=== PATIENT | female | born 1955 | race Caucasian/White ===

== ENCOUNTER 2016-10-26 01:00 | Emergency (ER) | payer MEDICARE, MEDICAID ==
[~2016-10-26] VITALS: Ht 162.6 cm; Wt 68.0 kg
[~2016-10-26 01:00] MED LIST: ALPR0.255 PO; HYDR-305 PO; IBUP-2070 PO; KDUR20 PO; MONT10TA21 PO; PANT40TA25 PO; SUMA25TA9 PO; ZOLP10 PO
[2016-10-26] MEDS ORDERED: MORPHINE SULFATE 4 MG/ML SYRINGE IVP ONE ×2 (01:30→04:00)
[2016-10-26] MEDS ORDERED: ONDANSETRON HCL 4 MG/2 ML VIAL IVP ONE (01:30)
[2016-10-26] MEDS ORDERED: SODIUM CHLORIDE 0.9% 1,000 ML IV ONE (04:00)
[2016-10-26] MEDS ORDERED: OxyCODONE HCL/ACETAMINOPHEN 5-325 MG TABLET PO ONE (07:45)
[2016-10-26] MEDS ORDERED: MORPHINE SULFATE 2 MG/ML SYRINGE IVP ONE ×2 (10:00→12:15)
[2016-10-26 11:40] VITALS: BP 113/60
[2016-12-18] MEDS ORDERED: FERR-89 PO (14:59)
== END 2016-10-26 12:34 | disposition home or self-care (01) ==
LOC: EMS 01:00
DX: S42.251A Displaced fracture of greater tuberosity of right humerus, initial encounter for closed fracture (principal); S42.261A Displaced fracture of lesser tuberosity of right humerus, initial encounter for closed fracture; Z91.040 Latex allergy status; Z88.1 Allergy status to other antibiotic agents; W18.40XA Slipping, tripping and stumbling without falling, unspecified, initial encounter; Y93.89 Activity, other specified; Y92.89 Other specified places as the place of occurrence of the external cause; Y99.8 Other external cause status
CPT/HCPCS: 71010; 73030; 73080; 93005; 96361; 96374; 96375; 96376; 99285; J2270 ×2; J2405; J7030

== ENCOUNTER 2016-10-31 12:50 | Inpatient (IN) | payer MEDICARE, MEDICAID ==
[~2016-10-31] VITALS: Ht 160 cm; Wt 70.8 kg
[~2016-10-31 12:50] MED LIST changes: +FentaNYL CITRATE-PF 100 MCG/2 ML VIAL IVP ONE; +HYDROmorphone 2 MG/ML SYRINGE IVP ONE; -IBUP-2070 PO; -KDUR20 PO; +MIDAZOLAM HCL 2 MG/2 ML VIAL IVP ONE; -MONT10TA21 PO; +MORPHINE SULFATE 4 MG/ML SYRINGE IVP ONE; -PANT40TA25 PO; -SUMA25TA9 PO
[2016-10-31 14:45] LABS: ANION GAP 9 mmol/L (8-16); CALCIUM, TOTAL 8.9 mg/dL (8.8-10.5); CARBON DIOXIDE 25 mmol/L (22-29); CHLORIDE 103 mmol/L (98-107); GLOMERULAR FILTR. RATE CALC > 60 mL/min (>60); POTASSIUM 3.4 mmol/L (3.5-5.1); SODIUM SERUM 137 mmol/L (136-145); UREA NITROGEN, BLOOD 11 mg/dL (7-18)
[2016-10-31 14:51] LABS: ALANINE AMINOTRANSFERASE 19 U/L (12-78); ALBUMIN 2.3 g/dL (3.4-5.0); ASPARTATE AMINOTRANSFERASE 27 U/L (15-37); BILIRUBIN,TOTAL 0.4 mg/dL (0.1-1.0); TOTAL PROTEIN, SERUM 6.8 g/dL (6.4-8.2)
[2016-10-31 14:53] LABS: BASOPHILS % (AUTO) 0.2 % (0.0-2.0); EOSINOPHILS % (AUTO) 1.2 % (1.0-6.0); HEMATOCRIT 28.3 % (36-46); HEMOGLOBIN 9.1 g/dL (12.0-16.0); LYMPHOCYTES # (AUTO) 2.2 K/uL (1.0-4.8); MEAN CORPUSCULAR HEMOGLOBIN 29.7 pg (26.0-34.0); MEAN CORPUSCULAR HGB CONC 32.3 G/dL (31.0-37.0); MEAN CORPUSCULAR VOLUME 92 fL (80-100); MONOCYTES # (AUTO) 1.2 K/uL (0.1-1.0); MONOCYTES % (AUTO) 7.9 % (2.0-9.0); NEUTROPHILS # (AUTO) 11.9 K/uL (1.8-7.7); NEUTROPHILS % (AUTO) 76.7 % (40.0-70.0); PLATELET COUNT (AUTO) 247 K/uL (150-450); RED BLOOD CELL COUNT(AUTO) 3.07 MIL/uL (4.00-5.20); WHITE BLOOD COUNT (AUTO) 15.5 K/uL (4.5-11.0)
[2016-10-31] MEDS ORDERED: HYDROCODONE/ACETAMINOPHEN 5-325 MG TABLET PO ONE (15:30)
[2016-10-31] MEDS ORDERED: MORPHINE SULFATE 4 MG/ML SYRINGE IVP ONE ×2 (15:45→18:15)
[2016-10-31] MEDS ORDERED: ONDANSETRON HCL 4 MG/2 ML VIAL IVP ONE ×2 (15:45→18:15)
[2016-10-31 16:08] LABS: APPEARANCE,URINE CLEAR (CLEAR); GLUCOSE, URINE (UA) NEGATIVE (NEGATIVE); KETONES,URINE >=80 mg/dL (NEGATIVE); LEUKOCYTE ESTERASE ,URINE NEGATIVE (NEGATIVE); OCCULT BLOOD,URINE NEGATIVE (NEGATIVE); PH,URINE 6.5 (5.0-8.0); PROTEIN,URINE POS 1+ (NEGATIVE)
[2016-10-31 16:14] LABS: ADD UA MICROSCOPIC NO
[2016-10-31] MEDS ORDERED: POTASSIUM CHL 10 MEQ/WATER 50 ML IV PRN (17:00)
[2016-10-31] MEDS ORDERED: MAGNESIUM HYDROXIDE SUSPENSION 30 ML UDCUP PO PRN (17:00)
[2016-10-31] MEDS ORDERED: POTASSIUM CHLORIDE 20 MEQ ER TABLET PO PRN (17:00)
[2016-10-31] MEDS ORDERED: ACETAMINOPHEN 325 MG TABLET PO PRN (17:00)
[2016-10-31] MEDS ORDERED: ALBUTEROL SULFATE 2.5 MG/0.5 ML NEB SOLUTION NEB PRN (17:00)
[2016-10-31 21:02] VITALS: BP 97/48
[2016-10-31 23:41] VITALS: BP 96/34
[2016-11-01] MEDS: HEPARIN SODIUM,PORCINE 5,000 UNITS/ML VIAL SQ SCH ×5 (00:50→23:45)
[2016-11-01] MEDS: DOCUSATE SODIUM 100 MG CAPSULE PO SCH ×3 (00:51→20:06)
[2016-11-01] MEDS: ZOLPIDEM TARTRATE 5 MG TABLET PO PRN ×2 (00:51→21:27)
[2016-11-01 04:17] VITALS: BP 94/47
[2016-11-01 07:12] VITALS: BP 132/76
[2016-11-01 07:28] LABS: BASOPHILS % (AUTO) 0.1 % (0.0-2.0); EOSINOPHILS % (AUTO) 2.9 % (1.0-6.0); LYMPHOCYTES # (AUTO) 1.8 K/uL (1.0-4.8); LYMPHOCYTES % (AUTO) 13.7 % (22.0-44.0); MEAN CORPUSCULAR HGB CONC 32.3 G/dL (31.0-37.0); MEAN CORPUSCULAR VOLUME 93 fL (80-100); MONOCYTES # (AUTO) 1.1 K/uL (0.1-1.0); MONOCYTES % (AUTO) 7.8 % (2.0-9.0); NEUTROPHILS # (AUTO) 10.2 K/uL (1.8-7.7); NEUTROPHILS % (AUTO) 75.5 % (40.0-70.0); PLATELET COUNT (AUTO) 238 K/uL (150-450); RED BLOOD CELL COUNT(AUTO) 3.34 MIL/uL (4.00-5.20); RED CELL DISTRIBUTION WIDTH 16.2 % (11.5-14.5)
[2016-11-01] MEDS: OxyCODONE HCL/ACETAMINOPHEN 5-325 MG TABLET PO PRN ×2 (07:44→20:06)
[2016-11-01] MEDS: PANTOPRAZOLE SODIUM 40 MG DR TABLET PO SCH (07:45)
[2016-11-01 08:34] LABS: WHITE BLOOD COUNT (AUTO) 15.9 K/uL (4.5-11.0)
[2016-11-01] MEDS: CHOLECALCIFEROL (VIT D3) 1,000 UNITS TABLET PO SCH (10:50)
[2016-11-01] MEDS: MORPHINE SULFATE 2 MG/ML SYRINGE IVP PRN ×2 (10:58→21:27)
[2016-11-01 12:01] VITALS: BP_SYST 111; BP_DIAS 6; BP_DIAS 69
[2016-11-01] MEDS ORDERED: SODIUM CL IRRIG SOLN BAG 3,000 ML IRRIG ONE (13:22)
[2016-11-01] MEDS ORDERED: RINGERS SOLUTION,LACTATED 1,000 ML IV ONE ×2 (13:45→13:55)
[2016-11-01] MEDS ORDERED: MORPHINE SULFATE 4 MG/ML SYRINGE ONE (14:24)
[2016-11-01] MEDS ORDERED: MORPHINE SULFATE 2 MG/ML SYRINGE IVP ONE (14:30)
[2016-11-01] MEDS ORDERED: MORPHINE SULFATE 4 MG/ML SYRINGE IVP ONE (14:30)
[2016-11-01 16:03] VITALS: BP 118/74
[2016-11-01] MEDS: ONDANSETRON HCL 4 MG/2 ML VIAL IVP PRN (18:30)
[2016-11-01 19:23] VITALS: BP 119/76
[2016-11-01 23:11] VITALS: BP 111/62
[2016-11-02] MEDS: MORPHINE SULFATE 2 MG/ML SYRINGE IVP PRN ×7 (01:42→23:09)
[2016-11-02] MEDS: ONDANSETRON HCL 4 MG/2 ML VIAL IVP PRN (01:42)
[2016-11-02 04:07] VITALS: BP 118/65
[2016-11-02] MEDS ORDERED: RINGERS SOLUTION,LACTATED 1,000 ML IV ONE ×3 (06:08→08:53)
[2016-11-02] MEDS ORDERED: RINGERS SOLUTION,LACTATED 1,000 ML IV SCH (06:15)
[2016-11-02 06:39] LABS: BASOPHILS # (AUTO) 0.02 K/uL (0.00-0.20); BASOPHILS % (AUTO) 0.2 % (0.0-2.0); EOSINOPHILS # (AUTO) 0.22 K/uL (0.00-0.70); HEMOGLOBIN 9.6 g/dL (12.0-16.0); LYMPHOCYTES # (AUTO) 1.7 K/uL (1.0-4.8); LYMPHOCYTES % (AUTO) 16.1 % (22.0-44.0); MEAN CORPUSCULAR HEMOGLOBIN 29.8 pg (26.0-34.0); MEAN CORPUSCULAR VOLUME 90 fL (80-100); MONOCYTES % (AUTO) 9.1 % (2.0-9.0); NEUTROPHILS # (AUTO) 7.7 K/uL (1.8-7.7); NEUTROPHILS % (AUTO) 72.5 % (40.0-70.0); PLATELET COUNT (AUTO) 293 K/uL (150-450); RED BLOOD CELL COUNT(AUTO) 3.21 MIL/uL (4.00-5.20); WHITE BLOOD COUNT (AUTO) 10.6 K/uL (4.5-11.0)
[2016-11-02 06:53] LABS: ANION GAP 8 mmol/L (8-16); CALCIUM, TOTAL 8.7 mg/dL (8.8-10.5); CARBON DIOXIDE 28 mmol/L (22-29); CHLORIDE 103 mmol/L (98-107); CREATININE 0.68 mg/dL (0.60-1.30); GLOMERULAR FILTR. RATE CALC > 60 mL/min (>60); POTASSIUM 3.6 mmol/L (3.5-5.1); SODIUM SERUM 139 mmol/L (136-145); UREA NITROGEN, BLOOD 8 mg/dL (7-18)
[2016-11-02] MEDS ORDERED: GUM MASTIC/STORAX/MSAL/ALCOHOL LIQUID 0.67 ML VIAL TP ONE (07:15)
[2016-11-02] MEDS ORDERED: MUPIROCIN CALCIUM 2% 22 GM OINTMENT ONE (07:15)
[2016-11-02] MEDS ORDERED: BUPIVACAINE HCL/PF 0.5% 30 ML VIAL ONE (07:15)
[2016-11-02] MEDS ORDERED: MICROFIBRILLAR COLLAGEN 1 GM PACKAGE TP ONE (07:16)
[2016-11-02] MEDS: HEPARIN SODIUM,PORCINE 5,000 UNITS/ML VIAL SQ SCH ×3 (07:49→20:10)
[2016-11-02] MEDS ORDERED: BUPIVACAINE LIPOSOME/PF 1.3%-13.3MG/ML SUSPENSION 20 ML VIAL INJ ONE (08:00)
[2016-11-02] MEDS ORDERED: HYDROmorphone 2 MG/ML SYRINGE IVP PRN (09:00)
[2016-11-02] MEDS: PANTOPRAZOLE SODIUM 40 MG DR TABLET PO SCH (09:00)
[2016-11-02] MEDS: DOCUSATE SODIUM 100 MG CAPSULE PO SCH ×3 (09:00→20:17)
[2016-11-02] MEDS ORDERED: MEPERIDINE-PF 25 MG/ML SYRINGE IVP PRN (09:00)
[2016-11-02] MEDS ORDERED: FentaNYL CITRATE-PF 100 MCG/2 ML VIAL ONE (09:21)
[2016-11-02] MEDS: FentaNYL CITRATE-PF 100 MCG/2 ML VIAL IVP PRN ×2 (09:22→09:35)
[2016-11-02 10:16] VITALS: BP 127/43
[2016-11-02] MEDS: CHOLECALCIFEROL (VIT D3) 1,000 UNITS TABLET PO SCH (10:21)
[2016-11-02 11:15] VITALS: BP 103/61
[2016-11-02] MEDS: OxyCODONE HCL/ACETAMINOPHEN 5-325 MG TABLET PO PRN ×3 (11:36→22:06)
[2016-11-02] MEDS ORDERED: PROPOFOL 1% 20 ML VIAL IVP ONE (12:00)
[2016-11-02] MEDS ORDERED: SUCCINYLCHOLINE CHLORIDE 20 MG/ML 10 ML VIAL IVP ONE (12:00)
[2016-11-02] MEDS ORDERED: METOCLOPRAMIDE HCL 5 MG/ML 2 ML VIAL IVP ONE (12:00)
[2016-11-02] MEDS ORDERED: ONDANSETRON HCL 4 MG/2 ML VIAL IVP ONE (12:00)
[2016-11-02 15:10] VITALS: BP 98/47
[2016-11-02] MEDS ORDERED: SODIUM CHLORIDE 0.9% 500 ML IV ONE (15:44)
[2016-11-02] MEDS: CeFAZolin 1 GM/DEXTROSE 50 ML IV SCH ×2 (15:52→23:08)
[2016-11-02 19:19] VITALS: BP 128/57
[2016-11-02] MEDS: OXYGEN THERAPY IH SCH (20:00)
[2016-11-02] MEDS: ZOLPIDEM TARTRATE 5 MG TABLET PO PRN (20:55)
[2016-11-02 23:15] VITALS: BP 119/64
[2016-11-03] MEDS: OxyCODONE HCL/ACETAMINOPHEN 5-325 MG TABLET PO PRN ×3 (02:41→10:00)
[2016-11-03] MEDS: MORPHINE SULFATE 2 MG/ML SYRINGE IVP PRN ×3 (05:14→11:38)
[2016-11-03 05:42] VITALS: BP 109/73
[2016-11-03 06:52] LABS: BASOPHILS % (AUTO) 0.3 % (0.0-2.0); EOSINOPHILS % (AUTO) 4.6 % (1.0-6.0); HEMATOCRIT 28.1 % (36-46); HEMOGLOBIN 8.9 g/dL (12.0-16.0); LYMPHOCYTES # (AUTO) 2.5 K/uL (1.0-4.8); LYMPHOCYTES % (AUTO) 25.3 % (22.0-44.0); MEAN CORPUSCULAR HEMOGLOBIN 29.3 pg (26.0-34.0); MEAN CORPUSCULAR HGB CONC 31.7 G/dL (31.0-37.0); MEAN CORPUSCULAR VOLUME 93 fL (80-100); MONOCYTES # (AUTO) 1.3 K/uL (0.1-1.0); MONOCYTES % (AUTO) 13.1 % (2.0-9.0); NEUTROPHILS # (AUTO) 5.7 K/uL (1.8-7.7); NEUTROPHILS % (AUTO) 56.7 % (40.0-70.0); PLATELET COUNT (AUTO) 324 K/uL (150-450); RED BLOOD CELL COUNT(AUTO) 3.03 MIL/uL (4.00-5.20); RED CELL DISTRIBUTION WIDTH 16.2 % (11.5-14.5); WHITE BLOOD COUNT (AUTO) 10.1 K/uL (4.5-11.0)
[2016-11-03 07:10] VITALS: BP 111/77
[2016-11-03] MEDS: OXYGEN THERAPY IH SCH (08:00)
[2016-11-03] MEDS: DOCUSATE SODIUM 100 MG CAPSULE PO SCH (08:20)
[2016-11-03] MEDS: HEPARIN SODIUM,PORCINE 5,000 UNITS/ML VIAL SQ SCH (08:20)
[2016-11-03] MEDS: CHOLECALCIFEROL (VIT D3) 1,000 UNITS TABLET PO SCH (08:21)
[2016-11-03] MEDS: PANTOPRAZOLE SODIUM 40 MG DR TABLET PO SCH (08:21)
[2016-11-03] MEDS ORDERED: MULTIVITAMINS WITH MINERALS, THERAPEUTIC TABLET PO SCH (09:45)
[2016-11-03 11:09] VITALS: BP 118/78
[2016-12-18] MEDS ORDERED: FERR-89 PO (14:59)
== END 2016-11-03 13:26 | DRG 500 ==
LOC: EMS 12:52 → 6N 19:52
PROVIDERS: ADMIT Internal Medicine; ATTEND Internal Medicine
PROC: 0QSF04Z Reposition Left Patella with Internal Fixation Device, Open Approach (ICD-10-PCS; principal; 2016-11-01)
PROC: 0KQT0ZZ Repair Left Lower Leg Muscle, Open Approach (ICD-10-PCS; 2016-11-01)
PROC: 0PSCXZZ Reposition Right Humeral Head, External Approach (ICD-10-PCS; 2016-11-01)
DX: S82.042A Displaced comminuted fracture of left patella, initial encounter for closed fracture (principal); E43 Unspecified severe protein-calorie malnutrition; A69.20 Lyme disease, unspecified; S42.231A 3-part fracture of surgical neck of right humerus, initial encounter for closed fracture; G62.9 Polyneuropathy, unspecified; D63.8 Anemia in other chronic diseases classified elsewhere; R29.6 Repeated falls; M62.58 Muscle wasting and atrophy, not elsewhere classified, other site; R53.81 Other malaise; J45.909 Unspecified asthma, uncomplicated; R62.7 Adult failure to thrive; Z98.890 Other specified postprocedural states; Z88.8 Allergy status to other drugs, medicaments and biological substances; Z88.1 Allergy status to other antibiotic agents; Z91.040 Latex allergy status; Z68.27 Body mass index [BMI] 27.0-27.9, adult; Z85.3 Personal history of malignant neoplasm of breast; Z92.3 Personal history of irradiation; Z87.891 Personal history of nicotine dependence; W19.XXXA Unspecified fall, initial encounter; Y93.89 Activity, other specified; Y92.89 Other specified places as the place of occurrence of the external cause; Y99.8 Other external cause status
CPT/HCPCS: 29505; 82306; 87081; 93005; 93306; 96374; 96375; 96376; 97163; 97167; 99285; C9290; J0330; J0690; J1170; J1644; J2250; J2270; J2405; J2704; J2765; J3010; J3490; J7040; J7120

== ENCOUNTER → 2016-12-12 | Outpatient (CLI) | payer MEDICARE, MEDICAID ==
[~2016-12-12] MED LIST changes: +A20IH1 IH; +ACET-2247 PO; +AZEL23SP NASAL; +BACL10TA PO; +BISA5TAB12 PO; +BUDE0.5A3 NEB; +DIPH25 PO; +DSS100 PO; +FERR-89 PO; +FURO20 PO; -FentaNYL CITRATE-PF 100 MCG/2 ML VIAL IVP ONE; +GUAI120017 PO; +GUAI600T PO; +HEPA500017 SQ; -HYDROmorphone 2 MG/ML SYRINGE IVP ONE; +HYPR15DR23 OU; +IBUP-1547 PO; +KDUR10 PO; -MIDAZOLAM HCL 2 MG/2 ML VIAL IVP ONE; +MOM30 PO; +MONT10TA21 PO; +MORP2CAR IM; -MORPHINE SULFATE 4 MG/ML SYRINGE IVP ONE; +ONDA4 PO; +OXYC10 PO; +PANT40TA25 PO; +PERCT10 PO; +PREG50 PO; +SUMA25TA9 PO; +TUSSI5L PO; +VITAD400 PO; +ZOLP5 PO; +[UNRECOGNIZED DRUG - CODE] PO; +[UNRECOGNIZED DRUG - OTHER] PO
== END | disposition home or self-care (01) ==
LOC: RADMN 12:55
PROVIDERS: ATTEND Internal Medicine Geriatric Medicine
DX: J44.9 Chronic obstructive pulmonary disease, unspecified (principal); J43.2 Centrilobular emphysema; J42 Unspecified chronic bronchitis
CPT/HCPCS: 71250

== ENCOUNTER 2016-12-18 14:09 | Inpatient (IN) | payer MEDICARE, MEDICAID ==
[~2016-12-18] VITALS: Ht 162.6 cm; Wt 68.7 kg
[~2016-12-18 14:09] MED LIST changes: -A20IH1 IH; -ACET-2247 PO; -AZEL23SP NASAL; -BACL10TA PO; -BISA5TAB12 PO; -BUDE0.5A3 NEB; -DIPH25 PO; -DSS100 PO; -FERR-89 PO; -FURO20 PO; -GUAI120017 PO; -GUAI600T PO; -HEPA500017 SQ; -HYPR15DR23 OU; -IBUP-1547 PO; -KDUR10 PO; -MOM30 PO; -MONT10TA21 PO; -MORP2CAR IM; -ONDA4 PO; -OXYC10 PO; -PANT40TA25 PO; -PERCT10 PO; -PREG50 PO; -SUMA25TA9 PO; -TUSSI5L PO; -VITAD400 PO; -ZOLP5 PO; -[UNRECOGNIZED DRUG - CODE] PO; -[UNRECOGNIZED DRUG - OTHER] PO
[2016-12-18] MEDS ORDERED: ACETAMINOPHEN 500 MG TABLET PO ONE (14:45)
[2016-12-18] MEDS ORDERED: 0.9% SODIUM CHLORIDE 10 ML SYRINGE IVP PRN (14:45)
[2016-12-18] MEDS ORDERED: ACET-2247 PO (14:50)
[2016-12-18] MEDS ORDERED: HYPR15DR23 OU (14:50)
[2016-12-18] MEDS ORDERED: A20IH1 IH (14:50)
[2016-12-18] MEDS ORDERED: DIPH25 PO (14:53)
[2016-12-18] MEDS ORDERED: BACL10TA PO (14:53)
[2016-12-18] MEDS ORDERED: AZEL23SP NASAL (14:53)
[2016-12-18] MEDS ORDERED: DSS100 PO (14:53)
[2016-12-18] MEDS ORDERED: PERCT10 PO (14:59)
[2016-12-18] MEDS ORDERED: IBUP-1547 PO (14:59)
[2016-12-18] MEDS ORDERED: PREG50 PO (14:59)
[2016-12-18] MEDS ORDERED: FERS325 PO (14:59)
[2016-12-18] MEDS ORDERED: HEPA500017 SQ (14:59)
[2016-12-18] MEDS ORDERED: PANT40TA25 PO (14:59)
[2016-12-18] MEDS ORDERED: FURO20 PO (14:59)
[2016-12-18] MEDS ORDERED: MORP2CAR IM (14:59)
[2016-12-18] MEDS ORDERED: [UNRECOGNIZED DRUG - OTHER] PO (14:59)
[2016-12-18] MEDS ORDERED: ONDA4 PO (14:59)
[2016-12-18] MEDS ORDERED: GUAI120017 PO (14:59)
[2016-12-18] MEDS ORDERED: MONT10TA21 PO (14:59)
[2016-12-18] MEDS ORDERED: VITAD400 PO (14:59)
[2016-12-18] MEDS ORDERED: ZOLP10 PO (14:59)
[2016-12-18] MEDS ORDERED: MOM30 PO (14:59)
[2016-12-18] MEDS ORDERED: ALPR0.255 PO (14:59)
[2016-12-18] MEDS ORDERED: OXYC10 PO (14:59)
[2016-12-18] MEDS ORDERED: [UNRECOGNIZED DRUG - CODE] PO (14:59)
[2016-12-18] MEDS ORDERED: ZOLP5 PO (14:59)
[2016-12-18 15:12] LABS: BASOPHILS % (AUTO) 0.1 % (0.0-2.0); EOSINOPHILS % (AUTO) 0.5 % (1.0-6.0); HEMATOCRIT 31.9 % (36-46); HEMOGLOBIN 10.1 g/dL (12.0-16.0); LYMPHOCYTES # (AUTO) 1.5 K/uL (1.0-4.8); LYMPHOCYTES % (AUTO) 6.1 % (22.0-44.0); MEAN CORPUSCULAR HEMOGLOBIN 28.1 pg (26.0-34.0); MEAN CORPUSCULAR HGB CONC 31.6 G/dL (31.0-37.0); MEAN CORPUSCULAR VOLUME 89 fL (80-100); MONOCYTES # (AUTO) 1.5 K/uL (0.1-1.0); NEUTROPHILS # (AUTO) 22.1 K/uL (1.8-7.7); PLATELET COUNT (AUTO) 364 K/uL (150-450); RED BLOOD CELL COUNT(AUTO) 3.58 MIL/uL (4.00-5.20); RED CELL DISTRIBUTION WIDTH 17.4 % (11.5-14.5); WHITE BLOOD COUNT (AUTO) 25.3 K/uL (4.5-11.0)
[2016-12-18 15:13] LABS: NEUTROPHILS % (AUTO) 87.3 % (40.0-70.0)
[2016-12-18 15:23] LABS: INR 1.1 (0.9-1.1); PROTHROMBIN TIME 11.4 SEC (9.4-11.6)
[2016-12-18 15:29] LABS: CALCIUM, TOTAL 8.4 mg/dL (8.8-10.5); CREATININE 1.03 mg/dL (0.60-1.30); POTASSIUM 3.9 mmol/L (3.5-5.1)
[2016-12-18 15:36] LABS: LACTIC ACID 1.4 mmol/L (0.4-2.0)
[2016-12-18 15:43] LABS: ALBUMIN 2.4 g/dL (3.4-5.0); BILIRUBIN,TOTAL 0.2 mg/dL (0.1-1.0)
[2016-12-18 16:00] LABS: APPEARANCE,URINE CLOUDY (CLEAR); GLUCOSE, URINE (UA) NEGATIVE (NEGATIVE); KETONES,URINE NEGATIVE (NEGATIVE); LEUKOCYTE ESTERASE ,URINE LARGE (NEGATIVE); OCCULT BLOOD,URINE SMALL (NEGATIVE); PH,URINE 5.5 (5.0-8.0); PROTEIN,URINE NEGATIVE (NEGATIVE)
[2016-12-18 16:06] LABS: ADD UA MICROSCOPIC YES
[2016-12-18 16:24] LABS: WBC,URINE 51-100 /HPF (0-5)
[2016-12-18] MEDS ORDERED: ALBUTEROL SULFATE 5 MG/ML 20 ML NEB SOLN [BULK] NEB ONE (16:30)
[2016-12-18] MEDS ORDERED: IPRATROPIUM BROMIDE 0.5 MG/2.5 ML NEB SOLUTION NEB ONE (16:30)
[2016-12-18] MEDS ORDERED: KDUR10 PO (16:32)
[2016-12-18] MEDS ORDERED: 0.9% SODIUM CHLORIDE 5 ML NEB SOLUTION NEB ONE (16:34)
[2016-12-18] MEDS ORDERED: BACLOFEN 10 MG TABLET PO PRN (17:30)
[2016-12-18] MEDS ORDERED: ACETAMINOPHEN 325 MG TABLET PO PRN (17:30)
[2016-12-18] MEDS ORDERED: BISACODYL 10 MG RECTAL RECTAL SUPPOSITORY PR PRN (17:30)
[2016-12-18] MEDS ORDERED: MAGNESIUM HYDROXIDE SUSPENSION 30 ML UDCUP PO PRN (17:30)
[2016-12-18] MEDS ORDERED: HYPROMELLOSE 0.5% 15 ML OPHTHALMIC SOLUTION OU PRN (17:30)
[2016-12-18] MEDS ORDERED: ZOLPIDEM TARTRATE 5 MG TABLET PO PRN (17:30)
[2016-12-18] MEDS ORDERED: ONDANSETRON HCL 4 MG/2 ML VIAL IVP ONE (17:45)
[2016-12-18] MEDS ORDERED: MORPHINE SULFATE 4 MG/ML SYRINGE IVP ONE (17:45)
[2016-12-18] MEDS: CefTRIAXone 1 GM/DEXTROSE 50 ML IV SCH (18:39)
[2016-12-18] MEDS: AZITHROMYCIN 500 MG/NS 250 ML IV SCH (18:52)
[2016-12-18] MEDS: ALBUTEROL SULFATE 2.5 MG/0.5 ML NEB SOLUTION NEB SCH (20:00)
[2016-12-18 20:09] VITALS: BP 119/65
[2016-12-18] MEDS ORDERED: HEPARIN SODIUM,PORCINE 5,000 UNITS/ML VIAL SQ SCH (21:00)
[2016-12-18] MEDS: BUDESONIDE 0.5 MG/2 ML NEB SOLUTION NEB SCH (21:02)
[2016-12-18] MEDS: IPRATROPIUM BROMIDE 0.5 MG/2.5 ML NEB SOLUTION NEB SCH (21:02)
[2016-12-18] MEDS: PREGABALIN 50 MG CAPSULE PO SCH (21:18)
[2016-12-18] MEDS: OxyCODONE HCL 10 MG ER TABLET PO PRN (21:20)
[2016-12-18] MEDS: OxyCODONE HCL/ACETAMINOPHEN 10-325 MG TABLET PO PRN (21:35)
[2016-12-18] MEDS: BENZONATATE 100 MG CAPSULE PO SCH (22:34)
[2016-12-18 23:32] VITALS: BP 130/91
[2016-12-18] MEDS ORDERED: PNEUMOCOCCAL VACCINE POLYVALENT 0.5 ML VIAL [PPSV23] IM ONE (23:45)
[2016-12-19] MEDS ORDERED: 0.9% SODIUM CHLORIDE 10 ML SYRINGE IVP PRN (00:15)
[2016-12-19] MEDS ORDERED: ONDANSETRON HCL 4 MG/2 ML VIAL IVP ONE (01:00)
[2016-12-19] MEDS ORDERED: METOCLOPRAMIDE HCL 5 MG/ML 2 ML VIAL IVP ONE (01:00)
[2016-12-19] MEDS ORDERED: PROPOFOL 1% 20 ML VIAL IVP ONE (01:00)
[2016-12-19] MEDS: IPRATROPIUM BROMIDE 0.5 MG/2.5 ML NEB SOLUTION NEB SCH ×4 (02:00→20:26)
[2016-12-19] MEDS: ALBUTEROL SULFATE 2.5 MG/0.5 ML NEB SOLUTION NEB SCH ×4 (02:00→20:00)
[2016-12-19] MEDS: MORPHINE SULFATE 2 MG/ML SYRINGE IVP PRN ×2 (02:45→08:44)
[2016-12-19] MEDS: OxyCODONE HCL/ACETAMINOPHEN 10-325 MG TABLET PO PRN ×4 (04:22→23:25)
[2016-12-19] MEDS: ALPRAZolam 0.25 MG TABLET PO PRN ×3 (04:23→21:17)
[2016-12-19 04:29] VITALS: BP 113/65
[2016-12-19 06:15] LABS: BASOPHILS % (AUTO) 0.1 % (0.0-2.0); EOSINOPHILS % (AUTO) 0.6 % (1.0-6.0); HEMATOCRIT 28.9 % (36-46); HEMOGLOBIN 9.1 g/dL (12.0-16.0); LYMPHOCYTES # (AUTO) 1.4 K/uL (1.0-4.8); LYMPHOCYTES % (AUTO) 6.9 % (22.0-44.0); MEAN CORPUSCULAR HEMOGLOBIN 28.1 pg (26.0-34.0); MEAN CORPUSCULAR HGB CONC 31.5 G/dL (31.0-37.0); MEAN CORPUSCULAR VOLUME 89 fL (80-100); MONOCYTES % (AUTO) 4.9 % (2.0-9.0); NEUTROPHILS # (AUTO) 17.7 K/uL (1.8-7.7); PLATELET COUNT (AUTO) 343 K/uL (150-450); RED BLOOD CELL COUNT(AUTO) 3.24 MIL/uL (4.00-5.20); RED CELL DISTRIBUTION WIDTH 17.5 % (11.5-14.5); WHITE BLOOD COUNT (AUTO) 20.3 K/uL (4.5-11.0)
[2016-12-19 06:28] LABS: HEMOGLOBIN A1C 6.1 % (4.5-6.2)
[2016-12-19 06:47] LABS: ANION GAP 8 mmol/L (8-16); CALCIUM, TOTAL 8.4 mg/dL (8.8-10.5); CARBON DIOXIDE 28 mmol/L (22-29); CHLORIDE 102 mmol/L (98-107); CHOL/HDL RATIO 2.7 (3.9-5.7); CREATINE KINASE, TOTAL 30 U/L (26-192); GLOMERULAR FILTR. RATE CALC > 60 mL/min (>60); POTASSIUM 3.9 mmol/L (3.5-5.1); SODIUM SERUM 138 mmol/L (136-145); THYROID STIMULATING HORMONE 1.79 uIU/mL (0.36-3.74); UREA NITROGEN, BLOOD 11 mg/dL (7-18)
[2016-12-19 06:48] LABS: NEUTROPHILS % (AUTO) 87.5 % (40.0-70.0)
[2016-12-19 08:21] VITALS: BP 109/65
[2016-12-19] MEDS: CHOLECALCIFEROL (VIT D3) 400 UNITS TABLET PO SCH (08:43)
[2016-12-19] MEDS: DOCUSATE SODIUM 100 MG CAPSULE PO SCH (08:43)
[2016-12-19] MEDS: FERROUS SULFATE 325 MG EC TABLET PO SCH (08:43)
[2016-12-19] MEDS: BENZONATATE 100 MG CAPSULE PO SCH ×3 (08:43→22:10)
[2016-12-19] MEDS: MONTELUKAST SODIUM 10 MG TABLET PO SCH (08:44)
[2016-12-19] MEDS: PREGABALIN 50 MG CAPSULE PO SCH ×2 (08:44→20:20)
[2016-12-19] MEDS: FUROSEMIDE 20 MG TABLET PO SCH (08:44)
[2016-12-19] MEDS ORDERED: PANTOPRAZOLE SODIUM 40 MG DR TABLET PO SCH (09:00)
[2016-12-19 10:25] LABS: RBC MORPHOLOGY COMMENT ABNORMAL RBC MORPH
[2016-12-19] MEDS ORDERED: SUMAtriptan SUCCINATE 25 MG TABLET PO PRN (10:45)
[2016-12-19] MEDS ORDERED: ZOLPIDEM TARTRATE 10 MG TABLET PO PRN (10:45)
[2016-12-19] MEDS ORDERED: MAGNESIUM SULFATE 2 GM in DEXTROSE 5%-WATER 50 ML IV PRN (10:45)
[2016-12-19] MEDS ORDERED: MAGNESIUM SULFATE 4 GM/WATER 100 ML IV PRN (10:45)
[2016-12-19 10:55] LABS: ALBUMIN 2.2 g/dL (3.4-5.0)
[2016-12-19] MEDS: BUDESONIDE 0.5 MG/2 ML NEB SOLUTION NEB SCH ×2 (11:31→20:26)
[2016-12-19 11:35] VITALS: BP 101/58
[2016-12-19] MEDS: MORPHINE SULFATE 10 MG/5 ML SOLUTION UDCUP PO PRN ×2 (12:45→20:19)
[2016-12-19] MEDS ORDERED: LIDOCAINE HCL 2% VISCOUS 15 ML SOLUTION UDCUP PO ONE (13:30)
[2016-12-19] MEDS ORDERED: SODIUM CHLORIDE 0.9% 1,000 ML IV ONE (13:30)
[2016-12-19] MEDS ORDERED: HYDROmorphone 2 MG/ML SYRINGE IVP PRN (15:15)
[2016-12-19] MEDS ORDERED: MEPERIDINE-PF 25 MG/ML SYRINGE IVP PRN (15:15)
[2016-12-19] MEDS ORDERED: FentaNYL CITRATE-PF 100 MCG/2 ML VIAL IVP PRN (15:15)
[2016-12-19 16:00] VITALS: BP 91/48
[2016-12-19] MEDS: CefTRIAXone 1 GM/DEXTROSE 50 ML IV SCH (17:12)
[2016-12-19] MEDS: DiphenhydrAMINE HCL 25 MG CAPSULE PO PRN ×2 (17:21→23:25)
[2016-12-19] MEDS: AZITHROMYCIN 500 MG/NS 250 ML IV SCH (18:00)
[2016-12-19 20:00] VITALS: BP 93/65
[2016-12-19] MEDS: GUAIFENESIN 600 MG PO SCH (20:20)
[2016-12-19] MEDS: PANTOPRAZOLE SODIUM 40 MG/VIAL IVP SCH (20:20)
[2016-12-19] MEDS: HYDROCODONE/CHLORPHEN POLIS 10-8 MG/5 ML ORAL.SYG PO PRN (20:20)
[2016-12-19] MEDS: OxyCODONE HCL 10 MG ER TABLET PO PRN (21:17)
[2016-12-19] MEDS: MAGNESIUM OXIDE 400 MG TABLET PO PRN ×2 (21:28→23:15)
[2016-12-20] VITALS (7 sets, daily range): BP systolic 94–118; BP diastolic 55–73
[2016-12-20] MEDS: ALBUTEROL SULFATE 2.5 MG/0.5 ML NEB SOLUTION NEB SCH ×4 (02:00→20:00)
[2016-12-20] MEDS: IPRATROPIUM BROMIDE 0.5 MG/2.5 ML NEB SOLUTION NEB SCH ×4 (02:00→20:33)
[2016-12-20] MEDS: MORPHINE SULFATE 10 MG/5 ML SOLUTION UDCUP PO PRN ×3 (02:16→17:32)
[2016-12-20] MEDS: MAGNESIUM OXIDE 400 MG TABLET PO PRN (02:16)
[2016-12-20] MEDS: ALPRAZolam 0.25 MG TABLET PO PRN ×3 (02:18→19:52)
[2016-12-20] MEDS: OxyCODONE HCL/ACETAMINOPHEN 10-325 MG TABLET PO PRN ×3 (05:35→19:52)
[2016-12-20 07:24] LABS: BASOPHILS % (AUTO) 0.5 % (0.0-2.0); EOSINOPHILS % (AUTO) 4.1 % (1.0-6.0); HEMATOCRIT 29.1 % (36-46); HEMOGLOBIN 9.2 g/dL (12.0-16.0); LYMPHOCYTES # (AUTO) 1.6 K/uL (1.0-4.8); LYMPHOCYTES % (AUTO) 14.4 % (22.0-44.0); MEAN CORPUSCULAR HEMOGLOBIN 28.2 pg (26.0-34.0); MEAN CORPUSCULAR HGB CONC 31.7 G/dL (31.0-37.0); MEAN CORPUSCULAR VOLUME 89 fL (80-100); MONOCYTES # (AUTO) 1.1 K/uL (0.1-1.0); MONOCYTES % (AUTO) 9.7 % (2.0-9.0); NEUTROPHILS # (AUTO) 7.8 K/uL (1.8-7.7); NEUTROPHILS % (AUTO) 71.3 % (40.0-70.0); PLATELET COUNT (AUTO) 354 K/uL (150-450); RED BLOOD CELL COUNT(AUTO) 3.27 MIL/uL (4.00-5.20); RED CELL DISTRIBUTION WIDTH 17.7 % (11.5-14.5)
[2016-12-20 07:31] LABS: RBC MORPHOLOGY COMMENT ABNORMAL RBC MORPH
[2016-12-20] MEDS: BUDESONIDE 0.5 MG/2 ML NEB SOLUTION NEB SCH ×2 (07:32→20:33)
[2016-12-20 07:34] LABS: ANION GAP 8 mmol/L (8-16); CALCIUM, TOTAL 8.4 mg/dL (8.8-10.5); CARBON DIOXIDE 29 mmol/L (22-29); CHLORIDE 103 mmol/L (98-107); CREATININE 0.85 mg/dL (0.60-1.30); GLOMERULAR FILTR. RATE CALC > 60 mL/min (>60); POTASSIUM 3.8 mmol/L (3.5-5.1); SODIUM SERUM 140 mmol/L (136-145); UREA NITROGEN, BLOOD 8 mg/dL (7-18)
[2016-12-20] MEDS: PANTOPRAZOLE SODIUM 40 MG/VIAL IVP SCH ×2 (07:52→19:38)
[2016-12-20] MEDS: PREGABALIN 50 MG CAPSULE PO SCH ×2 (07:55→19:36)
[2016-12-20] MEDS: MONTELUKAST SODIUM 10 MG TABLET PO SCH (07:55)
[2016-12-20] MEDS: FUROSEMIDE 20 MG TABLET PO SCH (07:56)
[2016-12-20] MEDS: GUAIFENESIN 600 MG PO SCH ×2 (07:56→19:37)
[2016-12-20] MEDS: BENZONATATE 100 MG CAPSULE PO SCH ×2 (07:56→17:32)
[2016-12-20] MEDS: CHOLECALCIFEROL (VIT D3) 400 UNITS TABLET PO SCH (07:57)
[2016-12-20] MEDS: FERROUS SULFATE 325 MG EC TABLET PO SCH (07:57)
[2016-12-20] MEDS: DOCUSATE SODIUM 100 MG CAPSULE PO SCH (07:57)
[2016-12-20] MEDS: CHOLECALCIFEROL (VIT D3) 2,000 UNITS TABLET PO SCH (09:00)
[2016-12-20] MEDS: HYDROCODONE/CHLORPHEN POLIS 10-8 MG/5 ML ORAL.SYG PO PRN ×2 (09:31→15:31)
[2016-12-20] MEDS: CefoTEtan DISOD 2 GM/DEXTROSE 50 ML IV SCH (13:19)
[2016-12-20] MEDS: OXYGEN THERAPY IH SCH ×2 (13:28→20:33)
[2016-12-20 15:24] LABS: HEPATITIS Bs ANTIGEN SCREEN P Negative (Negative); HEPATITIS C AB SCREEN 0.2 s/co ratio (0.0-0.9)
[2016-12-20] MEDS: DiphenhydrAMINE HCL 25 MG CAPSULE PO PRN (17:38)
[2016-12-20] MEDS: AZITHROMYCIN 500 MG/NS 250 ML IV SCH (19:36)
[2016-12-20] MEDS: OxyCODONE HCL 10 MG ER TABLET PO PRN (21:27)
[2016-12-20] MEDS: ZOLPIDEM TARTRATE 10 MG TABLET PO PRN (21:27)
[2016-12-21] MEDS: CefoTEtan DISOD 2 GM/DEXTROSE 50 ML IV SCH (00:18)
[2016-12-21] MEDS: BENZONATATE 100 MG CAPSULE PO SCH ×4 (00:18→23:07)
[2016-12-21] MEDS: OxyCODONE HCL/ACETAMINOPHEN 10-325 MG TABLET PO PRN ×5 (00:23→21:06)
[2016-12-21] MEDS: ALPRAZolam 0.25 MG TABLET PO PRN ×2 (00:29→09:29)
[2016-12-21] MEDS: DiphenhydrAMINE HCL 25 MG CAPSULE PO PRN ×3 (01:59→17:07)
[2016-12-21] MEDS: ALBUTEROL SULFATE 2.5 MG/0.5 ML NEB SOLUTION NEB SCH ×4 (02:00→20:00)
[2016-12-21] MEDS: IPRATROPIUM BROMIDE 0.5 MG/2.5 ML NEB SOLUTION NEB SCH ×4 (02:43→20:41)
[2016-12-21 03:09] VITALS: BP 101/61
[2016-12-21] MEDS: MORPHINE SULFATE 10 MG/5 ML SOLUTION UDCUP PO PRN ×3 (03:19→16:09)
[2016-12-21] MEDS: HYDROCODONE/CHLORPHEN POLIS 10-8 MG/5 ML ORAL.SYG PO PRN (05:52)
[2016-12-21 07:15] VITALS: BP 98/55
[2016-12-21] MEDS: BUDESONIDE 0.5 MG/2 ML NEB SOLUTION NEB SCH ×2 (07:38→20:41)
[2016-12-21 07:49] LABS: BASOPHILS % (AUTO) 0.8 % (0.0-2.0); EOSINOPHILS % (AUTO) 4.5 % (1.0-6.0); HEMATOCRIT 29.5 % (36-46); HEMOGLOBIN 9.3 g/dL (12.0-16.0); LYMPHOCYTES # (AUTO) 1.9 K/uL (1.0-4.8); LYMPHOCYTES % (AUTO) 20.1 % (22.0-44.0); MEAN CORPUSCULAR HGB CONC 31.6 G/dL (31.0-37.0); MEAN CORPUSCULAR VOLUME 88 fL (80-100); MONOCYTES # (AUTO) 1.2 K/uL (0.1-1.0); MONOCYTES % (AUTO) 12.8 % (2.0-9.0); NEUTROPHILS % (AUTO) 61.8 % (40.0-70.0); PLATELET COUNT (AUTO) 409 K/uL (150-450); RED BLOOD CELL COUNT(AUTO) 3.34 MIL/uL (4.00-5.20); RED CELL DISTRIBUTION WIDTH 17.7 % (11.5-14.5); WHITE BLOOD COUNT (AUTO) 9.7 K/uL (4.5-11.0)
[2016-12-21 08:01] LABS: ANION GAP 5 mmol/L (8-16); CALCIUM, TOTAL 8.5 mg/dL (8.8-10.5); CARBON DIOXIDE 34 mmol/L (22-29); CHLORIDE 100 mmol/L (98-107); CREATININE 0.87 mg/dL (0.60-1.30); GLOMERULAR FILTR. RATE CALC > 60 mL/min (>60); POTASSIUM 3.5 mmol/L (3.5-5.1); SODIUM SERUM 139 mmol/L (136-145); UREA NITROGEN, BLOOD 8 mg/dL (7-18)
[2016-12-21] MEDS: GUAIFENESIN 600 MG PO SCH ×2 (08:37→20:08)
[2016-12-21] MEDS: CHOLECALCIFEROL (VIT D3) 400 UNITS TABLET PO SCH (08:37)
[2016-12-21] MEDS: PANTOPRAZOLE SODIUM 40 MG/VIAL IVP SCH ×2 (08:37→20:08)
[2016-12-21] MEDS: PREGABALIN 50 MG CAPSULE PO SCH ×2 (08:37→20:08)
[2016-12-21] MEDS: FUROSEMIDE 20 MG TABLET PO SCH (08:38)
[2016-12-21] MEDS: DOCUSATE SODIUM 100 MG CAPSULE PO SCH (08:38)
[2016-12-21] MEDS: FERROUS SULFATE 325 MG EC TABLET PO SCH (08:38)
[2016-12-21] MEDS: MONTELUKAST SODIUM 10 MG TABLET PO SCH (08:39)
[2016-12-21] MEDS: CHOLECALCIFEROL (VIT D3) 2,000 UNITS TABLET PO SCH (09:00)
[2016-12-21 09:04] LABS: RBC MORPHOLOGY COMMENT ABNORMAL RBC MORPH
[2016-12-21] MEDS: OXYGEN THERAPY IH SCH ×2 (09:30→20:08)
[2016-12-21 11:10] VITALS: BP 137/73
[2016-12-21] MEDS: ONDANSETRON HCL 4 MG/2 ML VIAL IVP PRN ×2 (12:17→17:54)
[2016-12-21 20:50] VITALS: BP 122/55
[2016-12-21] MEDS: ZOLPIDEM TARTRATE 10 MG TABLET PO PRN (21:06)
[2016-12-21 21:10] LABS: APPEARANCE,URINE TURBID (CLEAR); GLUCOSE, URINE (UA) NEGATIVE (NEGATIVE); KETONES,URINE NEGATIVE (NEGATIVE); LEUKOCYTE ESTERASE ,URINE LARGE (NEGATIVE); OCCULT BLOOD,URINE MODERATE (NEGATIVE); PH,URINE 6.5 (5.0-8.0); PROTEIN,URINE NEGATIVE (NEGATIVE)
[2016-12-21 21:12] LABS: ADD UA MICROSCOPIC YES
[2016-12-21 21:33] LABS: WBC,URINE Full Field /HPF (0-5)
[2016-12-21] MEDS: OxyCODONE HCL 10 MG ER TABLET PO PRN (23:06)
[2016-12-21] MEDS: PIPERACILLIN/TAZO 3.375 GM/D5W 50 ML IV SCH (23:07)
[2016-12-22] MEDS: ALPRAZolam 0.25 MG TABLET PO PRN ×2 (00:01→12:51)
[2016-12-22 00:27] VITALS: BP 110/56
[2016-12-22] MEDS: MORPHINE SULFATE 10 MG/5 ML SOLUTION UDCUP PO PRN (01:51)
[2016-12-22] MEDS: ALBUTEROL SULFATE 2.5 MG/0.5 ML NEB SOLUTION NEB SCH ×2 (02:00→08:00)
[2016-12-22] MEDS: IPRATROPIUM BROMIDE 0.5 MG/2.5 ML NEB SOLUTION NEB SCH ×2 (02:16→08:07)
[2016-12-22 04:00] VITALS: BP 131/75
[2016-12-22] MEDS: PIPERACILLIN/TAZO 3.375 GM/D5W 50 ML IV SCH ×2 (05:11→11:55)
[2016-12-22] MEDS: DiphenhydrAMINE HCL 25 MG CAPSULE PO PRN (05:11)
[2016-12-22] MEDS: OxyCODONE HCL/ACETAMINOPHEN 10-325 MG TABLET PO PRN ×2 (05:11→11:57)
[2016-12-22 07:20] VITALS: BP 127/75
[2016-12-22] MEDS: BUDESONIDE 0.5 MG/2 ML NEB SOLUTION NEB SCH ×2 (08:07→08:29)
[2016-12-22] MEDS: PANTOPRAZOLE SODIUM 40 MG/VIAL IVP SCH (08:46)
[2016-12-22] MEDS: DOCUSATE SODIUM 100 MG CAPSULE PO SCH (08:46)
[2016-12-22] MEDS: FUROSEMIDE 20 MG TABLET PO SCH (08:46)
[2016-12-22] MEDS: FERROUS SULFATE 325 MG EC TABLET PO SCH (08:46)
[2016-12-22] MEDS: GUAIFENESIN 600 MG PO SCH (08:46)
[2016-12-22] MEDS: BENZONATATE 100 MG CAPSULE PO SCH (08:46)
[2016-12-22] MEDS: CHOLECALCIFEROL (VIT D3) 2,000 UNITS TABLET PO SCH (08:47)
[2016-12-22] MEDS: MONTELUKAST SODIUM 10 MG TABLET PO SCH (08:47)
[2016-12-22] MEDS: PREGABALIN 50 MG CAPSULE PO SCH (08:47)
[2016-12-22] MEDS: OXYGEN THERAPY IH SCH (08:48)
[2016-12-22] MEDS: HYDROCODONE/CHLORPHEN POLIS 10-8 MG/5 ML ORAL.SYG PO PRN (08:52)
[2016-12-22 11:24] VITALS: BP 103/72
[2016-12-22] MEDS: ONDANSETRON HCL 4 MG/2 ML VIAL IVP PRN (12:52)
[2016-12-22] MEDS ORDERED: SUMA25TA9 PO (13:06)
[2016-12-22] MEDS ORDERED: BISA5TAB12 PO (13:07)
[2016-12-22] MEDS ORDERED: TUSSI5L PO (13:08)
[2016-12-22] MEDS ORDERED: GUAI600T PO (13:09)
[2016-12-22] MEDS ORDERED: BUDE0.5A3 NEB (13:10)
[2016-12-25] MEDS ORDERED: SODIUM CHLORIDE 0.9% 1,000 ML IV ONE (08:55)
== END 2016-12-22 14:07 | disposition home or self-care (01) | DRG 871 ==
LOC: EMS 14:11 → 6N 16:43
PROVIDERS: ADMIT Internal Medicine Geriatric Medicine; ATTEND Internal Medicine Geriatric Medicine
PROC: 0DB58ZX Excision of Esophagus, Via Natural or Artificial Opening Endoscopic, Diagnostic (ICD-10-PCS; principal; 2016-12-19 14:30)
DX: A41.9 Sepsis, unspecified organism (principal); J18.9 Pneumonia, unspecified organism; E43 Unspecified severe protein-calorie malnutrition; J96.91 Respiratory failure, unspecified with hypoxia; J44.1 Chronic obstructive pulmonary disease with (acute) exacerbation; N39.0 Urinary tract infection, site not specified; J44.0 Chronic obstructive pulmonary disease with (acute) lower respiratory infection; B96.20 Unspecified Escherichia coli [E. coli] as the cause of diseases classified elsewhere; D63.8 Anemia in other chronic diseases classified elsewhere; E55.9 Vitamin D deficiency, unspecified; J45.909 Unspecified asthma, uncomplicated; K20.9 Esophagitis, unspecified; K22.9 Disease of esophagus, unspecified; K29.70 Gastritis, unspecified, without bleeding; K44.9 Diaphragmatic hernia without obstruction or gangrene; L29.9 Pruritus, unspecified; M79.7 Fibromyalgia; R13.10 Dysphagia, unspecified; R29.6 Repeated falls; F17.210 Nicotine dependence, cigarettes, uncomplicated; R91.1 Solitary pulmonary nodule; K31.9 Disease of stomach and duodenum, unspecified; S42.201D Unspecified fracture of upper end of right humerus, subsequent encounter for fracture with routine healing; Z85.3 Personal history of malignant neoplasm of breast; Z92.3 Personal history of irradiation; Z98.890 Other specified postprocedural states; Z88.8 Allergy status to other drugs, medicaments and biological substances; Z88.1 Allergy status to other antibiotic agents; Z91.040 Latex allergy status; Z79.899 Other long term (current) drug therapy; Z68.26 Body mass index [BMI] 26.0-26.9, adult
CPT/HCPCS: 80074; 82306; 82607; 82746; 83036; 83605; 83735; 84439; 84443; 87040; 87070; 87081; 87086; 87205; 88305; 88312; 88313; 88341; 88342; 93005; 94640; 94644; 96374; 96375; 97116; 97161; 97530; 99285; C9113; J0456; J0696; J1644; J2270; J2405; J2543; J2704; J2765; J3490

== ENCOUNTER 2017-01-07 14:12 | Emergency (ER) | payer MEDICARE, MEDICAID ==
[~2017-01-07] VITALS: Ht 162.6 cm; Wt 65.4 kg
[~2017-01-07 14:12] MED LIST changes: +A20IH1 IH; +ACET-2247 PO; +BACL10TA PO; +BISA5TAB12 PO; +BUDE0.5A3 NEB; +DIPH25 PO; +DSS100 PO; +FERR-89 PO; +FURO20 PO; +GUAI120017 PO; +GUAI600T PO; -HYDR-305 PO; +HYPR15DR23 OU; +MOM30 PO; +MONT10TA21 PO; +ONDA4 PO; +OXYC10 PO; +PANT40TA25 PO; +PERCT10 PO; +PREG50 PO; +SUMA25TA9 PO; +TUSSI5L PO; +VITAD400 PO
[2017-01-07 18:01] LABS: BASOPHILS % (AUTO) 1.4 % (0.0-2.0); EOSINOPHILS % (AUTO) 7.3 % (1.0-6.0); HEMATOCRIT 35.9 % (36-46); HEMOGLOBIN 11.4 g/dL (12.0-16.0); LYMPHOCYTES # (AUTO) 1.9 K/uL (1.0-4.8); LYMPHOCYTES % (AUTO) 28.2 % (22.0-44.0); MEAN CORPUSCULAR HEMOGLOBIN 27.8 pg (26.0-34.0); MEAN CORPUSCULAR HGB CONC 31.7 G/dL (31.0-37.0); MEAN CORPUSCULAR VOLUME 88 fL (80-100); MONOCYTES # (AUTO) 0.5 K/uL (0.1-1.0); MONOCYTES % (AUTO) 7.6 % (2.0-9.0); NEUTROPHILS # (AUTO) 3.7 K/uL (1.8-7.7); NEUTROPHILS % (AUTO) 55.5 % (40.0-70.0); RED BLOOD CELL COUNT(AUTO) 4.08 MIL/uL (4.00-5.20); RED CELL DISTRIBUTION WIDTH 18.2 % (11.5-14.5)
[2017-01-07 18:02] LABS: WHITE BLOOD COUNT (AUTO) 12.9 K/uL (4.5-11.0)
[2017-01-07 18:11] LABS: ANION GAP 6 mmol/L (8-16); CALCIUM, TOTAL 8.7 mg/dL (8.8-10.5); CARBON DIOXIDE 29 mmol/L (22-29); CHLORIDE 103 mmol/L (98-107); CREATININE 0.78 mg/dL (0.60-1.30); GLOMERULAR FILTR. RATE CALC > 60 mL/min (>60); POTASSIUM 4.8 mmol/L (3.5-5.1); SODIUM SERUM 138 mmol/L (136-145); UREA NITROGEN, BLOOD 9 mg/dL (7-18)
[2017-01-07 18:17] LABS: ALANINE AMINOTRANSFERASE 27 U/L (12-78); ALBUMIN 2.7 g/dL (3.4-5.0); ASPARTATE AMINOTRANSFERASE 67 U/L (15-37); BILIRUBIN,TOTAL 0.3 mg/dL (0.1-1.0); TOTAL PROTEIN, SERUM 7.7 g/dL (6.4-8.2)
[2017-01-07 18:41] LABS: PLATELET COUNT (AUTO) 231 K/uL (150-450)
[2017-01-07 18:43] LABS: RBC MORPHOLOGY COMMENT ABNORMAL RBC MORPH
[2017-01-07 19:55] VITALS: BP 114/63
[2017-03-27] MEDS ORDERED: CARAL PO (13:35)
== END 2017-01-07 20:13 | disposition home or self-care (01) ==
LOC: EMS 14:23
DX: R60.0 Localized edema (principal); J45.909 Unspecified asthma, uncomplicated; F17.210 Nicotine dependence, cigarettes, uncomplicated; Z88.8 Allergy status to other drugs, medicaments and biological substances; Z88.1 Allergy status to other antibiotic agents; Z91.040 Latex allergy status
CPT/HCPCS: 87040; 93005; 93971; 99285

== ENCOUNTER → 2017-02-18 | Outpatient (CLI) | payer MEDICARE, MEDICAID ==
[~2017-02-18] MED LIST changes: -A20IH1 IH; -ACET-2247 PO; -BISA5TAB12 PO; +CARAL PO; -DSS100 PO; -HYPR15DR23 OU; -MOM30 PO; -ONDA4 PO; -SUMA25TA9 PO
== END | disposition home or self-care (01) ==
LOC: RADPV 11:56
PROVIDERS: ATTEND Internal Medicine Geriatric Medicine
DX: J44.9 Chronic obstructive pulmonary disease, unspecified (principal); J84.10 Pulmonary fibrosis, unspecified; J98.11 Atelectasis; J98.4 Other disorders of lung
CPT/HCPCS: 71020

== ENCOUNTER → 2017-03-27 | Outpatient (CLI) | payer MEDICARE, MEDICAID ==
[~2017-03-27] VITALS: Ht 162.6 cm; Wt 64.5 kg
[2017-03-27 13:32] VITALS: BP 131/76
== END | disposition home or self-care (01) ==
LOC: SRCNTR 12:52
PROVIDERS: ATTEND Internal Medicine Critical Care Medicine
DX: R09.82 Postnasal drip (principal); N39.0 Urinary tract infection, site not specified; A41.9 Sepsis, unspecified organism; J44.1 Chronic obstructive pulmonary disease with (acute) exacerbation; Z87.891 Personal history of nicotine dependence; Z92.3 Personal history of irradiation
CPT/HCPCS: G0463

== ENCOUNTER → 2017-04-29 | Outpatient (CLI) | payer MEDICARE, MEDICAID ==
[~2017-04-29] MED LIST changes: +BENZ-26 PO; -BUDE0.5A3 NEB; -FURO20 PO; -GUAI120017 PO; -TUSSI5L PO
== END | disposition home or self-care (01) ==
LOC: RADMN 13:58
PROVIDERS: ATTEND Internal Medicine Critical Care Medicine
DX: J34.1 Cyst and mucocele of nose and nasal sinus (principal)
CPT/HCPCS: 70486

== ENCOUNTER → 2017-05-02 | Outpatient (CLI) | payer MEDICARE, MEDICAID ==
[2017-05-02 14:01] VITALS: BP 117/70
== END | disposition home or self-care (01) ==
LOC: SRCNTR 13:56
PROVIDERS: ATTEND Internal Medicine Critical Care Medicine
DX: A41.9 Sepsis, unspecified organism (principal); J44.1 Chronic obstructive pulmonary disease with (acute) exacerbation; N39.0 Urinary tract infection, site not specified; R09.82 Postnasal drip; Z87.891 Personal history of nicotine dependence
CPT/HCPCS: G0463

== ENCOUNTER → 2017-07-03 | Outpatient (CLI) | payer MEDICARE, MEDICAID ==
[~2017-07-03] VITALS: Ht 162.6 cm; Wt 67.5 kg
[~2017-07-03] MED LIST changes: -BENZ-26 PO; +BENZ-51 PO; +FURO20 PO; -GUAI600T PO; +GUAI600T50 PO; +ONDA4 PO; -ZOLP10 PO; +ZOLP10TA7 PO
[2017-07-03 12:19] VITALS: BP 106/69
== END | disposition home or self-care (01) ==
LOC: SRCNTR 12:15
PROVIDERS: ATTEND Internal Medicine Critical Care Medicine
DX: J44.9 Chronic obstructive pulmonary disease, unspecified (principal); J96.11 Chronic respiratory failure with hypoxia; N39.0 Urinary tract infection, site not specified; A41.9 Sepsis, unspecified organism; F17.200 Nicotine dependence, unspecified, uncomplicated; Z88.1 Allergy status to other antibiotic agents; Z91.040 Latex allergy status
CPT/HCPCS: G0463

== ENCOUNTER → 2017-07-16 | Outpatient (CLI) | payer MEDICARE, MEDICAID ==
[~2017-07-16] VITALS: Ht 162.6 cm; Wt 67.5 kg
[2017-07-16 15:47] VITALS: BP 128/73
== END | disposition home or self-care (01) ==
LOC: SRCNTR 15:46
PROVIDERS: ATTEND Internal Medicine Clinical Cardiac Electrophysiology
DX: J44.9 Chronic obstructive pulmonary disease, unspecified (principal); R55 Syncope and collapse; I10 Essential (primary) hypertension; F41.9 Anxiety disorder, unspecified; Z85.3 Personal history of malignant neoplasm of breast; Z87.891 Personal history of nicotine dependence
CPT/HCPCS: G0463

== ENCOUNTER → 2017-08-08 | Outpatient (CLI) | payer MEDICARE, MEDICAID ==
[~2017-08-08] VITALS: Ht 162.6 cm; Wt 67.4 kg
[2017-08-08 12:55] VITALS: BP 107/69
== END | disposition home or self-care (01) ==
LOC: SRCNTR 12:44
PROVIDERS: ATTEND Internal Medicine
DX: J44.9 Chronic obstructive pulmonary disease, unspecified (principal); K21.9 Gastro-esophageal reflux disease without esophagitis; K22.70 Barrett's esophagus without dysplasia; R09.82 Postnasal drip; F17.200 Nicotine dependence, unspecified, uncomplicated
CPT/HCPCS: G0463

== ENCOUNTER → 2017-08-08 | Outpatient (CLI) | payer MEDICARE, MEDICAID | END | disposition home or self-care (01) | LOC: RADPV 14:46 | PROVIDERS: ATTEND Internal Medicine Critical Care Medicine | DX: J44.9 Chronic obstructive pulmonary disease, unspecified (principal); J98.4 Other disorders of lung; J98.11 Atelectasis; I70.0 Atherosclerosis of aorta | CPT/HCPCS: 71020 ==

== ENCOUNTER → 2017-08-16 | Outpatient (CLI) | payer MEDICARE, MEDICAID | END | disposition home or self-care (01) | LOC: RADMN 11:58 | PROVIDERS: ATTEND Specialist | DX: R91.8 Other nonspecific abnormal finding of lung field (principal); M47.894 Other spondylosis, thoracic region; I25.10 Atherosclerotic heart disease of native coronary artery without angina pectoris; I70.0 Atherosclerosis of aorta; R90.82 White matter disease, unspecified; S82.002D Unspecified fracture of left patella, subsequent encounter for closed fracture with routine healing; X58.XXXD Exposure to other specified factors, subsequent encounter | CPT/HCPCS: 70551; 71250 ==

== ENCOUNTER → 2017-08-20 | Outpatient (CLI) | payer MEDICARE, MEDICAID | END | disposition home or self-care (01) | LOC: RESP 12:56 | PROVIDERS: ATTEND Internal Medicine | DX: J44.9 Chronic obstructive pulmonary disease, unspecified (principal) | CPT/HCPCS: 94010; 94060; 94726; 94727; 94729 ==

== ENCOUNTER → 2017-09-17 | Outpatient (CLI) | payer MEDICARE, MEDICAID ==
[~2017-09-17] VITALS: Ht 162.6 cm; Wt 69.5 kg
[2017-09-17 12:59] VITALS: BP 126/71
== END | disposition home or self-care (01) ==
LOC: SRCNTR 12:54
PROVIDERS: ATTEND Internal Medicine
DX: J44.9 Chronic obstructive pulmonary disease, unspecified (principal); R09.82 Postnasal drip; R91.8 Other nonspecific abnormal finding of lung field; K21.9 Gastro-esophageal reflux disease without esophagitis
CPT/HCPCS: G0463

== ENCOUNTER → 2017-10-17 | Outpatient (CLI) | payer MEDICARE, MEDICAID | END | disposition home or self-care (01) | LOC: RADPV 14:36 | PROVIDERS: ATTEND Internal Medicine Cardiovascular Disease | DX: R91.8 Other nonspecific abnormal finding of lung field (principal) | CPT/HCPCS: 71046 ==

== ENCOUNTER → 2018-01-09 | Outpatient (CLI) | payer MEDICARE, MEDICAID ==
[~2018-01-09] VITALS: Ht 162.6 cm; Wt 68.0 kg
[~2018-01-09] MED LIST changes: +IBUP-2070 PO
[2018-01-09 14:00] VITALS: BP 129/72
== END | disposition home or self-care (01) ==
LOC: SRCNTR 13:59
PROVIDERS: ATTEND Internal Medicine
DX: J43.9 Emphysema, unspecified (principal); J84.10 Pulmonary fibrosis, unspecified; K22.70 Barrett's esophagus without dysplasia; F17.200 Nicotine dependence, unspecified, uncomplicated
CPT/HCPCS: G0463

== ENCOUNTER 2018-01-23 14:19 | Emergency (ER) | payer MEDICARE, MEDICAID ==
[~2018-01-23] VITALS: Ht 160 cm; Wt 81.8 kg
[~2018-01-23 14:19] MED LIST changes: -CARAL PO; -FURO20 PO
[2018-01-23 15:11] VITALS: BP 152/99
[2018-01-23] MEDS ORDERED: HydrOXYzine HCL 25 MG TABLET PO ONE (15:15)
== END 2018-01-23 15:36 | disposition home or self-care (01) ==
LOC: EMS 14:20
DX: T50.995A Adverse effect of other drugs, medicaments and biological substances, initial encounter (principal); L29.9 Pruritus, unspecified; J44.9 Chronic obstructive pulmonary disease, unspecified; J45.909 Unspecified asthma, uncomplicated; Z87.891 Personal history of nicotine dependence; Z88.1 Allergy status to other antibiotic agents; Z91.040 Latex allergy status; Y92.89 Other specified places as the place of occurrence of the external cause
CPT/HCPCS: 99283

== ENCOUNTER → 2018-05-19 | Outpatient (CLI) | payer MEDICARE, MEDICAID ==
[~2018-05-19] MED LIST changes: -MONT10TA21 PO; -VITAD400 PO
== END | disposition home or self-care (01) ==
LOC: RADPV 12:47
PROVIDERS: ATTEND Internal Medicine Geriatric Medicine
DX: R04.2 Hemoptysis (principal); J44.9 Chronic obstructive pulmonary disease, unspecified; J98.4 Other disorders of lung

== ENCOUNTER → 2018-06-12 | Outpatient (CLI) | payer MEDICARE, MEDICAID | END | disposition home or self-care (01) | LOC: RADMN 13:52 | PROVIDERS: ATTEND Internal Medicine Geriatric Medicine | DX: K44.9 Diaphragmatic hernia without obstruction or gangrene (principal); I70.0 Atherosclerosis of aorta; J43.2 Centrilobular emphysema; M79.7 Fibromyalgia; J45.909 Unspecified asthma, uncomplicated | CPT/HCPCS: 71250 ==

== ENCOUNTER → 2018-07-31 | Outpatient (CLI) | payer MEDICARE, MEDICAID | END | disposition home or self-care (01) | LOC: RADMN 12:34 | PROVIDERS: ATTEND Specialist | DX: I67.2 Cerebral atherosclerosis (principal); I67.82 Cerebral ischemia; R29.6 Repeated falls | CPT/HCPCS: 70450; 95816 ==

== ENCOUNTER → 2018-08-12 | Outpatient (CLI) | payer MEDICARE, MEDICAID ==
[~2018-08-12] VITALS: Ht 160 cm; Wt 65.0 kg
[2018-08-12 13:17] VITALS: BP 111/67
== END | disposition home or self-care (01) ==
LOC: SRCNTR 12:58
PROVIDERS: ATTEND Internal Medicine
DX: J43.9 Emphysema, unspecified (principal); R09.82 Postnasal drip; K22.70 Barrett's esophagus without dysplasia; R91.8 Other nonspecific abnormal finding of lung field; F17.200 Nicotine dependence, unspecified, uncomplicated
CPT/HCPCS: G0463

== ENCOUNTER 2019-01-09 08:47 | Emergency (ER) | payer MEDICARE, MEDICAID ==
[~2019-01-09] VITALS: Ht 162.6 cm; Wt 54.6 kg
[~2019-01-09 08:47] MED LIST changes: +AZIT250T9 PO; +CEFU250T58 PO
[2019-01-09 09:31] LABS: BASOPHILS % (AUTO) 0.4 % (0.0-2.0); EOSINOPHILS % (AUTO) 0 % (1.0-6.0); HEMATOCRIT 30.1 % (36-46); LYMPHOCYTES # (AUTO) 1.1 K/uL (1.0-4.8); LYMPHOCYTES % (AUTO) 11.9 % (22.0-44.0); MEAN CORPUSCULAR HEMOGLOBIN 22.9 pg (26.0-34.0); MEAN CORPUSCULAR VOLUME 76 fL (80-100); MONOCYTES # (AUTO) 0.5 K/uL (0.1-1.0); NEUTROPHILS # (AUTO) 7.2 K/uL (1.8-7.7); NEUTROPHILS % (AUTO) 81.7 % (40.0-70.0); PLATELET COUNT (AUTO) 262 K/uL (150-450); RED BLOOD CELL COUNT(AUTO) 3.96 MIL/uL (4.00-5.20); RED CELL DISTRIBUTION WIDTH 21.4 % (11.5-14.5)
[2019-01-09 09:39] LABS: CALCIUM, TOTAL 9.7 mg/dL (8.8-10.5); CREATININE 1.02 mg/dL (0.60-1.30); POTASSIUM 4.4 mmol/L (3.5-5.1)
[2019-01-09 09:41] LABS: INR 1.1 (0.9-1.1); PROTHROMBIN TIME 11.5 SEC (9.4-11.6)
[2019-01-09 10:05] LABS: ALBUMIN 2.7 g/dL (3.4-5.0); BILIRUBIN,TOTAL 0.4 mg/dL (0.1-1.0); TOTAL PROTEIN, SERUM 7.2 g/dL (6.4-8.2)
[2019-01-09 12:35] VITALS: BP 102/65
== END 2019-01-09 12:48 | disposition left against medical advice (07) ==
LOC: EMS 08:48
DX: R55 Syncope and collapse (principal); R41.82 Altered mental status, unspecified; R22.0 Localized swelling, mass and lump, head; J45.909 Unspecified asthma, uncomplicated; F41.9 Anxiety disorder, unspecified; Z87.891 Personal history of nicotine dependence; Z88.8 Allergy status to other drugs, medicaments and biological substances; Z88.1 Allergy status to other antibiotic agents; Z91.040 Latex allergy status
CPT/HCPCS: 70450; 70486; 93005

== ENCOUNTER 2019-03-20 22:48 | Emergency (ER) | payer MEDICARE, MEDICAID ==
[~2019-03-20] VITALS: Ht 162.6 cm; Wt 55.7 kg
[2019-03-20 23:17] LABS: BASOPHILS % (AUTO) 1.2 % (0.0-2.0); EOSINOPHILS % (AUTO) 2.2 % (1.0-6.0); HEMOGLOBIN 9.9 g/dL (12.0-16.0); LYMPHOCYTES % (AUTO) 17.2 % (22.0-44.0); MEAN CORPUSCULAR HEMOGLOBIN 22.1 pg (26.0-34.0); MEAN CORPUSCULAR HGB CONC 30.1 G/dL (31.0-37.0); MEAN CORPUSCULAR VOLUME 73 fL (80-100); MONOCYTES # (AUTO) 0.7 K/uL (0.1-1.0); MONOCYTES % (AUTO) 11.1 % (2.0-9.0); NEUTROPHILS # (AUTO) 4.1 K/uL (1.8-7.7); NEUTROPHILS % (AUTO) 68.3 % (40.0-70.0); PLATELET COUNT (AUTO) 324 K/uL (150-450); RED BLOOD CELL COUNT(AUTO) 4.49 MIL/uL (4.00-5.20); RED CELL DISTRIBUTION WIDTH 21.6 % (11.5-14.5)
[2019-03-20] MEDS ORDERED: SODIUM CHLORIDE 0.9% 100 ML ONE (23:26)
[2019-03-20] MEDS ORDERED: IOVERSOL 350 MG/ML 100 ML VIAL ONE (23:26)
[2019-03-20 23:28] LABS: ANION GAP 8 mmol/L (8-16); CALCIUM, TOTAL 10.3 mg/dL (8.8-10.5); CARBON DIOXIDE 29 mmol/L (22-29); CHLORIDE 103 mmol/L (98-107); CREATININE 0.82 mg/dL (0.60-1.30); GLOMERULAR FILTR. RATE CALC > 60 mL/min (>60); GLUCOSE,RANDOM 110 mg/dL (70-110); POTASSIUM 3.6 mmol/L (3.5-5.1); PROTHROMBIN TIME 10.7 SEC (9.4-11.6); SODIUM SERUM 140 mmol/L (136-145); UREA NITROGEN, BLOOD 9 mg/dL (7-18)
[2019-03-20 23:34] LABS: ALANINE AMINOTRANSFERASE 9 U/L (12-78); ALBUMIN 2.8 g/dL (3.4-5.0); ALKALINE PHOSPHATASE 75 U/L (46-116); ASPARTATE AMINOTRANSFERASE 19 U/L (15-37); BILIRUBIN,TOTAL 0.4 mg/dL (0.1-1.0); TOTAL PROTEIN, SERUM 7.5 g/dL (6.4-8.2)
[2019-03-20 23:40] LABS: PLATELET MORPHOLOGY COMMENT LARGE PLTS PRESENT
[2019-03-20 23:45] VITALS: BP 145/58
== END 2019-03-21 | disposition short-term general hospital (02) ==
LOC: EMS 22:48
DX: I63.9 Cerebral infarction, unspecified (principal); J45.909 Unspecified asthma, uncomplicated; F41.9 Anxiety disorder, unspecified; Z87.891 Personal history of nicotine dependence; Z88.8 Allergy status to other drugs, medicaments and biological substances; Z88.1 Allergy status to other antibiotic agents; Z91.040 Latex allergy status
CPT/HCPCS: 70450; 70496; 71045; 80053; 82962; 84484; 85025; 85610; 85730; 86850; 86900; 86901; 93005; 99291; J7050; Q9967

== ENCOUNTER → 2019-11-10 | Outpatient (CLI) | payer MEDICARE, MEDICAID ==
[~2019-11-10] MED LIST changes: +ONDA-104 PO; -ONDA4 PO; +OXYC-601 PO; -OXYC10 PO; +OXYC10TA59 PO; -PERCT10 PO
[2019-11-10 13:35] VITALS: BP 97/58
== END | disposition home or self-care (01) ==
LOC: SRCNTR 13:17
PROVIDERS: ATTEND Internal Medicine
DX: J44.9 Chronic obstructive pulmonary disease, unspecified (principal); R91.8 Other nonspecific abnormal finding of lung field; D71 Functional disorders of polymorphonuclear neutrophils; R09.82 Postnasal drip; K22.70 Barrett's esophagus without dysplasia; F17.200 Nicotine dependence, unspecified, uncomplicated
CPT/HCPCS: G0463